=== PATIENT | female | born 1990 | race Two or more races ===

== ENCOUNTER 2021-03-12 11:13 | Emergency (ER) | payer SELFPAY ==
[2021-03-12 11:26] VITALS: BP 122/80; PULSE 63; TEMP 99.6; BMI 28.3
[2021-03-12] MEDS ORDERED: IBUPROFEN 600 MG TABLET (FP) PO ONE ×2 (11:32→11:35)
[2021-03-12 12:27] LABS: EPITHELIAL CELLS MODERATE /hpf
== END 2021-03-12 12:46 | disposition home or self-care (01) ==
LOC: FER 11:13
DX: M54.5 Low back pain (principal)
CPT/HCPCS: 72100-TC-FY; 81003; 81015; 84703; 99284-25